=== PATIENT | male | born 1975 | race Caucasian/White ===

== ENCOUNTER 2025-01-26 16:52 | Emergency (ER) | payer BC ==
[~2025-01-26] VITALS: Ht 180.3 cm; Wt 72.6 kg
[2025-01-26 16:57] VITALS: BP 142/93
[2025-01-26] MEDS ORDERED: MORPHINE SULFATE 4 MG/1 ML DISP.SYRIN ONE (17:12)
[2025-01-26] MEDS ORDERED: ONDANSETRON 4 MG/2 ML VIAL ONE (17:12)
[2025-01-26] MEDS ORDERED: KETOROLAC TROMETHAMINE 30 MG INJ ONE (17:12)
[2025-01-26] MEDS: MORPHINE SULFATE 4 MG/1 ML DISP.SYRIN IV ONE (17:20)
[2025-01-26] MEDS: KETOROLAC TROMETHAMINE 30 MG INJ IVP ONE (17:20)
[2025-01-26] MEDS: ONDANSETRON 4 MG/2 ML VIAL IV ONE (17:20)
[2025-01-26] MEDS ORDERED: HYDR-3980 PO (19:04)
[2025-01-26] MEDS ORDERED: CARI350T PO (19:04)
[2025-01-26] MEDS ORDERED: ACETAMINOPHEN 500 MG TABLET ONE (19:05)
[2025-01-26] MEDS: ACETAMINOPHEN 500 MG TABLET PO ONE (19:07)
[2025-01-26 19:30] VITALS: BP 135/84; O2SAT 98
== END 2025-01-26 19:17 | disposition home or self-care (01) ==
LOC: ER 16:55
DX: M48.54XA Collapsed vertebra, not elsewhere classified, thoracic region, initial encounter for fracture (principal); K90.0 Celiac disease; K76.0 Fatty (change of) liver, not elsewhere classified; Z87.11 Personal history of peptic ulcer disease; X58.XXXA Exposure to other specified factors, initial encounter; Y93.89 Activity, other specified; Y92.89 Other specified places as the place of occurrence of the external cause; Y99.9 Unspecified external cause status
CPT/HCPCS: 99285; 96374; 72128; 96375; J1885; J2405; J2270; A4606; A4663; A9150